=== PATIENT | female | born 2000 | race Caucasian/White ===

== ENCOUNTER 2020-04-17 13:09 | Outpatient (CLI) | payer BC, OTHER ==
--- NOTE | 2020-04-17 13:43 | XRAY Report ---
PROCEDURE: Cervical Spine Complete INDICATIONS: NECK PAIN, ACUTE TECHNIQUE: 5 view(s) of the cervical spine were acquired. COMPARISON: None. FINDINGS: Bones: No fractures or dislocations to the C7 level. The lateral masses of C1 appear intact on the odontoid view. No suspicious bony lesions. Soft tissues: No prevertebral soft tissue swelling. IMPRESSION: No acute fracture. No osseous lesion. If symptoms and/or clinical suspicion for patholog y continue, further assessment with repeat plain films, or advanced imaging (e.g., CT, MRI, or bone s can) is recommended for further assessment. Reviewed by: Vicente Vizcarar MD on 04/17/2020 1:42 PM PDT Approved by: Vicente Vizcarra MD on 04/17/2020 1:42 PM PDT Station ID: [id number]
== END 2020-04-17 13:10 | disposition home or self-care (01) ==
LOC: DI.S 13:09
PROVIDERS: ATTEND Physician Assistant Medical
DX: M54.2 Cervicalgia (principal)
CPT/HCPCS: 72050